=== PATIENT | male | born 1975 | race Caucasian/White ===

== ENCOUNTER 2017-05-31 11:03 | Outpatient (CLI) | payer MEDICAID ==
--- NOTE | 2017-05-31 13:52 | XRAY Report ---
LUMBAR SPINE, TWO VIEWS: 05/31/2017 CLINICAL INDICATION: Back pain. FINDINGS: AP, lateral, coned-down views of the lumbar spine demonstrate mild degenerative disk disea se. There is no evidence of fracture. Minimal levoscoliosis is present, which may be positional in nature. IMPRESSION: MILD DEGENERATIVE DISK DISEASE. JOB #: [id number] EXT JOB #:[id number]
== END 2017-05-31 11:04 | disposition home or self-care (01) ==
LOC: DI 11:03
PROVIDERS: ATTEND Internal Medicine
DX: M51.36 Other intervertebral disc degeneration, lumbar region (principal)
CPT/HCPCS: 72100

== ENCOUNTER 2017-06-04 10:03 | Emergency (ER) | payer MEDICAID ==
--- NOTE | 2017-06-04 11:40 | ED Physician Documentation ---
History of Present Illness - Stated complaint Stated Complaint: MCHUGH,HIGH BP - Chief complaint Chief Complaint: Cardiac - History obtained from History obtained from: Patient - Additonal information Additional information: Patient is a 42-year-old man who presents with a complaint of ongoing frontal headache. He was seen by a new primary care physician last week and started on some alternative medications for pain control and cruising including prazosin Cymbalta, naproxen. At that point in time he noted his blood pressure was slightly elevated and he is asked the patient to watch it. From that time to the present he is developed a headache and has been checking his blood pressure at home and found to be fairly significant elevated to the 110-115 level diastolic. The patient does not have any chest pain or abdominal pain but does have low back pain which radiates down to the right testicle on occasion. This is an ongoing issue. The patient's headache today is a little different from his typical migrainous headache that he gets in the past and about the elevated blood pressure as well. Review of systems: For pertinent positive and negatives in the review of systems please see the history of present illness, otherwise all other systems have been reviewed and are negative. Dragon disclaimer: Parts of this medical record were created using voice recognition technology. Because of the inherent limitations of this system, occasional same sounding word substitutions do occur and persist despite proofreading. Please read the document for context. Review of Systems Constitutional: denies: Fever, Chills Eyes: denies: Loss of vision, Decreased vision GI: denies: Abdominal Pain, Abdominal Swelling Musculoskeletal: reports: Back pain. denies: Neck pain, Extremity pain Neurologic: denies: Generalized weakness, Focal weakness, Numbness, Difficulty speaking, Near syncope, Syncope, Seizure, Confused, Altered mental status PD PAST MEDICAL HISTORY - Past Medical History Cardiovascular: None Respiratory: None Neuro: Headache/migraine Endocrine/Autoimmune: None GI: Other : None HEENT: None Psych: Depression, Anxiety Musculoskeletal: Gout Derm: None - Past Surgical History Past Surgical History: Yes - Present Medications Home Medications: Ambulatory Orders Medication Instructions Recorded Confirmed Ibuprofen 600 mg PO TID #20 tablet 07/08/15 10/12/15 Cyclobenzaprine [Flexeril] 10 mg PO .FREQ 06/04/17 06/04/17 DULoxetine [Cymbalta] 20 mg PO DAILY 06/04/17 06/04/17 Gabapentin 300 mg PO 06/04/17 Metoprolol Succinate 50 mg PO DAILY #14 tab.er.24h 06/04/17 Prazosin [Minipress] 1 mg PO QPM 06/04/17 06/04/17 Tramadol HCl 50 mg PO Q8HR PRN #14 tablet 06/04/17 oxyCODONE [Roxicodone] 5 mg PO ONCE 06/04/17 06/04/17 - Allergies Allergies/Adverse Reactions: Allergies Allergy/AdvReac Type Severity Reaction Status Date / Time buspirone HCl * [From BuSpar] Allergy Unknown Verified 06/04/17 10:14 hydrocodone Allergy Rash Verified 06/04/17 10:14 paroxetine HCl * [From Paxil] Allergy Unknown Verified 06/04/17 10:14 - Social History Does the pt smoke?: Yes Smoking Status: Current every day smoker Does the pt drink ETOH?: Yes Does the pt have substance abuse?: No - Immunizations Immunizations are current?: Yes - POLST Patient has POLST: No PD ED PE NORMAL - Vitals Vital signs reviewed: Yes - General General: Alert and oriented X 3, No acute distress - HEENT HEENT: Atraumatic, PERRL - Neck Neck: Supple, no meningeal sign - Cardiac Cardiac: RRR, No murmur - Respiratory Respiratory: No respiratory distress - Abdomen Abdomen: Normal bowel sounds - Derm Derm: Normal color, Warm and dry - Extremities Extremities: No deformity, No tenderness to palpate - Neuro Neuro: Alert and oriented X 3, 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, No motor deficit - Psych Psych: Normal mood Results - Vitals Vitals: Vital Signs - 24 hr 06/04/17 06/04/17 06/04/17 10:10 12:19 13:02 Temperature 36.5 C Heart Rate 63 58 L 50 L Respiratory 16 16 16 Rate Blood Pressure 160/105 H 177/108 H 173/108 H O2 Saturation 99 99 99 06/04/17 06/04/17 14:07 15:10 Temperature Heart Rate 52 L 51 L Respiratory 15 14 Rate Blood Pressure 173/108 H 152/104 H O2 Saturation 100 99 Oxygen O2 Source Room air - Labs Labs: Laboratory Tests 06/04/17 12:00 Urine Color YELLOW Urine Clarity CLEAR Urine pH 6.5 Ur Specific Broad Top 1.015 Urine Protein NEGATIVE Urine Glucose (UA) NEGATIVE Urine Ketones NEGATIVE Urine Occult Blood MODERATE H Urine Nitrite NEGATIVE Urine Bilirubin NEGATIVE Urine Urobilinogen 0.2 (NORMAL) Ur Leukocyte Esterase NEGATIVE Urine RBC 0-5 Urine WBC 0-3 Ur Squamous Epith Cells NONE SEEN Urine Bacteria None Seen Ur Microscopic Review INDICATED Urine Culture Comments NOT INDICATED PD MEDICAL DECISION MAKING - ED course ED course: Patient is a 42-year-old male with history of chronic low back pain who was diagnosed possibly with mild elevation of his blood pressure during a recent physician's office visit. He was also put on medications as an alternative to narcotics for his chronic low back pain which she has been taking. He presents today with a chief complaint of headache which is a little different from his regular migraine headaches and elevated blood pressure. Thought more likely than not that the headache was not related to the mild elevation in his blood pressures I attempted to control the headache with a small amount of narcotic analgesia and ultimately Imitrex. The patient's blood pressure remained mildly elevated but did finally come down with the administration of clonidine. At this point in time I feel inclined to put him on a blood pressure medication I will put him on a medication that hopefully might control his blood pressure and also partly prophylax him from headaches. I will put him on metoprolol but since he has been started on Minipress I will have him discontinue this medication. The Minipress was put on primarily for reasons other than blood pressure. He is discharged home at this time in improved condition Disposition: 1. Elevated blood pressure is here and historically possibly indicative of mild uncontrolled hypertension 2. Headache resolved with Imitrex Departure - Departure Disposition: 01 Home, Self Care Clinical Impression: Cephalalgia, Hypertension Condition: Good Instructions: Hypertension Control, ED Headache Migraine Follow-Up: Kellen Walker MD [Primary Care Provider] - Prescriptions: Tramadol HCl 50 mg PO Q8HR PRN #14 tablet PRN Reason: Pain Metoprolol Succinate 50 mg PO DAILY #14 tab.er.24h Comments: Your blood pressure is persistently elevated here despite relieving her headache. This is possibly suggestive of mild underlying hypertension. I will start you on a medication called metoprolol that I think will help you however he probably should discontinue the Minipress while being on this medication.
[2017-06-04] MEDS ORDERED: SODIUM CHLORIDE 0.9% 1,000 ML IV ONE (11:41)
[2017-06-04] MEDS ORDERED: diphenhydrAMINE INJ 50 MG/ML VIAL IVP STA (11:42)
[2017-06-04] MEDS ORDERED: diphenhydrAMINE INJ 50 MG/ML VIAL ONE (12:08)
[2017-06-04 12:13] LABS: BILIRUBIN,URINE NEGATIVE (NEGATIVE); PH,URINE 6.5 PH (5.0-7.5)
[2017-06-04 12:14] LABS: UA w/ MICROSCOPIC CHARGE YES
[2017-06-04 12:23] LABS: UR CULTURE IF IND NOT INDICATED; WBC,URINE 0-3 /HPF (0-3)
[2017-06-04] MEDS ORDERED: HYDROmorphone 1 MG/ML SYRINGE IM STA (12:25)
[2017-06-04] MEDS ORDERED: PROMETHAZINE 25 MG/1 ML VIAL IM STA (12:25)
[2017-06-04] MEDS ORDERED: HYDROmorphone 1 MG/ML SYRINGE ONE (12:34)
[2017-06-04] MEDS ORDERED: PROMETHAZINE 25 MG/1 ML VIAL ONE (12:35)
[2017-06-04] MEDS ORDERED: SUMAtriptan 6 MG/0.5 ML VIAL SUBQ ONE ×2 (14:29→14:38)
[2017-06-04] MEDS ORDERED: cloNIDine 0.1 MG TABLET PO STA (14:29)
[2017-06-04] MEDS ORDERED: cloNIDine 0.1 MG TABLET ONE (14:39)
[2017-06-04 15:11] VITALS: BP 152/104
== END 2017-06-04 15:56 | disposition home or self-care (01) ==
LOC: ED 10:03
DX: R51 Headache (principal); I10 Essential (primary) hypertension; M10.9 Gout, unspecified; F17.200 Nicotine dependence, unspecified, uncomplicated
CPT/HCPCS: 81001; 96372; 99283; 99284; A9270; J1170; 80048; 81003; 85025; 87086

== ENCOUNTER 2017-07-07 09:30 | Outpatient (CLI) | payer MEDICAID ==
--- NOTE | 2017-07-07 14:11 | MRI Report ---
EXAM: MRI LUMBAR SPINE WITHOUT CONTRAST EXAM DATE: 07/07/2017 09:32 AM. CLINICAL HISTORY: BACK PAIN. COMPARISON: Radiograph lumbar spine 05/31/2017. TECHNIQUE: Multiplanar, multisequence T1-weighted and fluid-sensitive sequences of the lumbar spine f rom T12 to S1 without contrast. Other: None. FINDINGS: Spinal Cord: The conus terminates at L1-L2. No signal abnormality in the visualized spinal cord. Alignment: straightening of normal lumbar lordosis. No significant anterolisthesis or retrolisthesis . Bone Marrow: Five [id number]-zjm-[id number] lumbar vertebral bodies are assumed. mild diffuse heterogeneity of the bone marrow, may represent fatty replacement of the marrow. No gross fractures or bone lesions. Mild Modic type I degenerative endplate changes at L3-L4 with mild endplate edema. M Disk Levels/Facets: T12-L1: Unremarkable. L1-L2: Unremarkable. L2-L3: mild diffuse disk both superimposed left foraminal protrusion. The left foraminal protrusion may have mild mass effect on the exiting left L2 nerve at this level. Mild anterior dural compression . No significant central canal narrowing. Mild left neuroforaminal narrowing. No right neuroforaminal narrowing. L3-L4: mild disk height loss and desiccation. Mild diffuse disk bulge. Mild anterior dural compressi on. No significant central canal narrowing. Mild left neuroforaminal narrowing. No right neuroforamin al narrowing. L4-L5: mild diffuse disk bulge. Mild bilateral facet arthropathy. No significant central canal narro wing. Xaye-rj-xztdqton bilateral neuroforaminal narrowing. L5-S1: dxfr-zm-hbuxdsij bilateral facet arthropathy. No significant central canal narrowing. Mild thong ateral neuroforaminal narrowing. Musculature: Normal. No edema or fatty atrophy. Other: The visualized pelvic cavity is unremarkable. IMPRESSION: 1. Mild multilevel degenerative spondylosis, as detailed above and summarized below. No evidence of a cute fracture or malalignment. No cord signal normality at any level. 2. Mild Modic type I degenerative endplate changes at L3-L4 with mild endplate edema. Modic type I ch anges may represent a source of pain. 3. L2-L3 level demonstrates no significant central canal narrowing. Mild left neuroforaminal narrowin g. No right neuroforaminal narrowing. 4. L3-L4 level demonstrates no significant central canal narrowing. Mild left neuroforaminal narrowin g. No right neuroforaminal narrowing. 5. L4-L5 level demonstrates no significant central canal narrowing. Sahl-nl-szmmcakp bilateral neurof oraminal narrowing. 6. L5-S1 level demonstrates no significant central canal narrowing. Mild bilateral neuroforaminal vickie rowing. Comment: The following findings are so common in adults without low back pain that while we report th eir presence, they must be interpreted with caution and in the context of the clinical situation. (Re shiva De Anda et al, Spine 2001) Prevalence of findings in patients without low back pain: Disk degeneration (any evidence): 92% Disk desiccation/T2 signal loss: 83% Disk height loss: 56% Disk bulge: 64% Disk protrusion: 32% Annular tear/high intensity zone: 38% [facility] Referring Provider Line: [phone] SITE ID: [id number]
== END 2017-07-07 09:31 | disposition home or self-care (01) ==
LOC: DI 09:30
PROVIDERS: ATTEND Internal Medicine
DX: M51.26 Other intervertebral disc displacement, lumbar region (principal); M47.896 Other spondylosis, lumbar region; M48.06 Spinal stenosis, lumbar region; M89.9 Disorder of bone, unspecified
CPT/HCPCS: 72148

== ENCOUNTER 2018-08-08 10:37 | Outpatient (CLI) | payer MEDICAID ==
--- NOTE | 2018-08-08 16:18 | XRAY Report ---
Reason: COUGH Procedure Date: 08/08/2018 Accession Number: [id number] / [id number] Procedure: XR - Chest 2 View X-Ray CPT Code: 08082 FULL RESULT: EXAM: CHEST RADIOGRAPHY EXAM DATE: 08/08/2018 10:46 AM. CLINICAL HISTORY: Cough. COMPARISON: XR RIBS UNILAT W/ PA CHEST MIN 3 VIEWS 02/28/2012 12:28 PM. TECHNIQUE: 2 views. FINDINGS: Lungs/Pleura: No focal opacities evident. No pleural effusion. No pneumothorax. Lung volumes are increased with flattening of the diaphragms. Mediastinum: Heart and mediastinal contours are unremarkable. Other: None. IMPRESSION: Flattened diaphragms with increased lung volumes can be seen in the setting of emphysema. [facility]
== END 2018-08-08 10:38 | disposition home or self-care (01) ==
LOC: DI 10:37
PROVIDERS: ATTEND Internal Medicine
DX: R05 Cough (principal)
CPT/HCPCS: 71046

== ENCOUNTER 2018-10-13 12:40 | Outpatient (CLI) | payer MEDICAID ==
[2018-10-13] MEDS ORDERED: IOVERSOL 320 100 ML VIAL IVP ONE (12:48)
== END 2018-10-13 12:41 | disposition home or self-care (01) ==
LOC: DI 12:40
PROVIDERS: ATTEND Surgery
DX: Z53.9 Procedure and treatment not carried out, unspecified reason (principal)

== ENCOUNTER 2019-07-16 21:47 | Emergency (ER) | payer MEDICAID ==
--- NOTE | 2019-07-16 22:42 | ED Physician Documentation ---
PD HPI WOUND RECHECK - Stated complaint Stated Complaint: OPEN ABSCESS - Chief complaint Chief Complaint: Wound - Histroy obtained from History obtained from: Patient - History of Present Illness Location: Back Timing - onset: How many days ago (2-3) Associated symptoms: Swelling, Drainage, Pain Similar symptoms before: Diagnosis (pilonidal cyst) Recently seen: Emergency Dept - Additional information Additional information: 2-3 days of worsening pain and swelling at gluteal cleft for which he was evaluated at ED yesterday, had I+D of pilonidal cyst with packing placed. He was seen by PMD earlier today for f/u. After returning home from the reevaluation, he noted packing fell out. He is chiefly concerned with whether packing needs to be replaced. Review of Systems Constitutional: denies: Fever, Chills, Sweats Skin: reports: Lesions PD PAST MEDICAL HISTORY - Past Medical History Past Medical History: Yes Cardiovascular: Hypertension Respiratory: None Endocrine/Autoimmune: None GI: None : None HEENT: None Psych: Depression, Anxiety, ADD/ADHD Musculoskeletal: Gout Derm: None - Past Surgical History Past Surgical History: Yes - Present Medications Home Medications: Ambulatory Orders Medication Instructions Recorded Confirmed Ibuprofen 600 mg PO TID #20 tablet 07/08/15 10/12/15 Cyclobenzaprine [Flexeril] 10 mg PO .FREQ 06/04/17 06/04/17 DULoxetine [Cymbalta] 20 mg PO DAILY 06/04/17 06/04/17 Gabapentin 300 mg PO 06/04/17 Metoprolol Succinate 50 mg PO DAILY #14 tab.er.24h 06/04/17 Prazosin [Minipress] 1 mg PO QPM 06/04/17 06/04/17 Tramadol HCl 50 mg PO Q8HR PRN #14 tablet 06/04/17 oxyCODONE [Roxicodone] 5 mg PO ONCE 06/04/17 06/04/17 - Allergies Allergies/Adverse Reactions: Allergies Allergy/AdvReac Type Severity Reaction Status Date / Time buspirone HCl * [From BuSpar] Allergy Unknown Verified 06/04/17 10:14 hydrocodone Allergy Rash Verified 06/04/17 10:14 paroxetine HCl * [From Paxil] Allergy Unknown Verified 06/04/17 10:14 - Social History Does the pt smoke?: Yes Smoking Status: Current every day smoker Does the pt drink ETOH?: No Does the pt have substance abuse?: No Substance Use and Type: Marijuana - Immunizations Immunizations are current?: Yes - POLST Patient has POLST: No PD ED PE NORMAL - Vitals Vital signs reviewed: Yes - General General: Alert and oriented X 3, No acute distress, Well developed/nourished PD ED PE EXPANDED - Back Back visual: 1 - tenderness (confluent erythema, moderate tenderness without fluctuance. there is a central opening from which small amount of purulence expresses with pressure to edges of the lesion) Results - Vitals Vitals: Oxygen O2 Source Room air PD MEDICAL DECISION MAKING - ED course Complexity details: considered differential, d/w patient ED course: lack of fluctuance and lack of palpable abscess margins on exam suggest against presence of loculations. The opening (incision site) has mild drainage and appears to be providing adequate opening for drainage without need for repacking at this time. Departure - Departure Disposition: 01 Home, Self Care Clinical Impression: Infected pilonidal cyst Condition: Good Instructions: ED Wound Care Follow-Up: Kellen Walker MD [Primary Care Provider] - Discharge Date/Time: 07/16/19 23:17
[2019-07-16] MEDS ORDERED: BACITRACIN ZINC OINT 14 GM TOP STA (23:00)
[2019-07-16 23:17] VITALS: BP 185/128
== END 2019-07-16 23:17 | disposition home or self-care (01) ==
LOC: ED 21:47
DX: L05.01 Pilonidal cyst with abscess (principal); I10 Essential (primary) hypertension; F17.200 Nicotine dependence, unspecified, uncomplicated
CPT/HCPCS: 99282; A9270

== ENCOUNTER 2019-11-06 22:37 | Emergency (ER) | payer MEDICAID ==
[2019-11-06 22:42] VITALS: BP 150/100
[2019-11-06] MEDS ORDERED: oxyCODONE/ACET 5/325 Prepack 4 PO STA (22:50)
[2019-11-06] MEDS ORDERED: CLINDAMYCIN 150 MG CAPSULE PO STA (22:53)
--- NOTE | 2019-11-06 22:58 | ED Physician Documentation ---
PD HPI HEENT - Stated complaint Stated Complaint: SWOLLEN LIP - Chief complaint Chief Complaint: Heent - History obtained from History obtained from: Patient (He noticed what he felt was a pimple on his lip, he popped it and now has more swelling and pain. He does have a history of MRSA.) Review of Systems Constitutional: denies: Fever, Chills Ears: denies: Loss of hearing, Ear pain Nose: denies: Rhinorrhea / runny nose, Congestion PD PAST MEDICAL HISTORY - Past Medical History Cardiovascular: Hypertension Respiratory: None Endocrine/Autoimmune: None GI: None : None HEENT: None Psych: Depression, Anxiety, ADD/ADHD Musculoskeletal: Gout Derm: None - Past Surgical History Past Surgical History: Yes - Present Medications Home Medications: Ambulatory Orders Medication Instructions Recorded Confirmed Ibuprofen 600 mg PO TID #20 tablet 07/08/15 10/12/15 Cyclobenzaprine [Flexeril] 10 mg PO .FREQ 06/04/17 06/04/17 DULoxetine [Cymbalta] 20 mg PO DAILY 06/04/17 06/04/17 Gabapentin 300 mg PO 06/04/17 Metoprolol Succinate 50 mg PO DAILY #14 tab.er.24h 06/04/17 Prazosin [Minipress] 1 mg PO QPM 06/04/17 06/04/17 Tramadol HCl 50 mg PO Q8HR PRN #14 tablet 06/04/17 oxyCODONE [Roxicodone] 5 mg PO ONCE 06/04/17 06/04/17 Clindamycin HCl [Clindamycin 300MG 300 mg PO Q6H #40 capsule 11/06/19 CAP] Oxycodone HCl/Acetaminophen 1 - 2 each PO Q6H PRN #14 tablet 11/06/19 [Percocet 5-325 mg Tablet] - Allergies Allergies/Adverse Reactions: Allergies Allergy/AdvReac Type Severity Reaction Status Date / Time buspirone HCl * [From BuSpar] Allergy Unknown Verified 11/06/19 22:39 hydrocodone Allergy Rash Verified 11/06/19 22:39 paroxetine HCl * [From Paxil] Allergy Unknown Verified 11/06/19 22:39 - Social History Does the pt smoke?: Yes Smoking Status: Current every day smoker Does the pt drink ETOH?: No Does the pt have substance abuse?: No - Immunizations Immunizations are current?: Yes - POLST Patient has POLST: No PD ED PE NORMAL - Vitals Vital signs reviewed: Yes - General General: Alert and oriented X 3, No acute distress - HEENT HEENT: Other (There is a indurated area on the lower lip, there is a little area where it looks like the pus came out of right at the vermilion border. There is no fluctuance left nor is there any fluid collection on bedside ultrasound. A culture was taken from the little opening of the vermilion border but there was not really much material to culture, it looks like he completely drained at home.) - Neck Neck: Supple, no meningeal sign, No bony TTP - Neuro Neuro: Alert and oriented X 3, Normal speech Results - Vitals Vitals: Vital Signs - 24 hr 11/06/19 22:40 Temperature 36.7 C Heart Rate 57 L Respiratory 14 Rate Blood Pressure 150/100 H O2 Saturation 98 Oxygen O2 Source Room air PD MEDICAL DECISION MAKING - ED course ED course: 44-year-old gentleman with what looks like a completely drained lip abscess. He is started on clindamycin. We obtained a culture. Departure - Departure Disposition: Home, Self Care Clinical Impression: Lip abscess Condition: Good Record reviewed to determine appropriate education?: Yes Instructions: ED Staph Infec Abx Tx Only Prescriptions: Clindamycin HCl [Clindamycin 300MG CAP] 300 mg PO Q6H #40 capsule Oxycodone HCl/Acetaminophen [Percocet 5-325 mg Tablet] 1 - 2 each PO Q6H PRN #14 tablet PRN Reason: pain Comments: We are performing a wound culture, the results should be done in 48-72 hours. If antibiotic change is necessary we will call you. Return if worse in the meantime, especially if you develop increased pain, fevers, cannot keep down the medication. Otherwise follow-up with your physician in approximately 2-3 days. Your blood pressure was elevated today on check into the emergency department. This does not mean that you have hypertension, it is a common phenomenon to come to the emergency department and have elevated blood pressure. I recommend that you see your primary care physician within the week to have it rechecked when you are feeling better.
== END 2019-11-06 23:00 | disposition home or self-care (01) ==
LOC: ED 22:37
DX: K13.0 Diseases of lips (principal); I10 Essential (primary) hypertension; F17.200 Nicotine dependence, unspecified, uncomplicated
CPT/HCPCS: 87070; 87077; 87181; 87205; 99283; A9270

== ENCOUNTER 2019-11-22 15:26 | Emergency (ER) | payer MEDICAID ==
[2019-11-22 15:33] VITALS: BP 126/91
[2019-11-22] MEDS ORDERED: predniSONE 20 MG TABLET PO STA (15:56)
[2019-11-22] MEDS ORDERED: COLCHICINE 0.6 MG TABLET PO STA (15:56)
[2019-11-22] MEDS ORDERED: IBUPROFEN 800 MG TABLET PO STA (15:56)
--- NOTE | 2019-11-22 15:57 | ED Physician Documentation ---
History of Present Illness - Stated complaint Stated Complaint: LT FOOT PX - Chief complaint Chief Complaint: Ext Problem - History obtained from History obtained from: Patient - History of Present Illness Timing: Today Pain level max: 4 Pain level now: 3 - Additonal information Additional information: 44-year-old male with a longstanding history of gout. He states that he started developing pain, redness and swelling in his left first MTP. He states that this is a common spot for him. Worse with movement and better with rest. No fevers. No vomiting. Review of Systems Constitutional: denies: Fever, Chills GI: denies: Vomiting, Diarrhea Skin: denies: Rash PD PAST MEDICAL HISTORY - Past Medical History Past Medical History: Yes Cardiovascular: Hypertension Respiratory: None Endocrine/Autoimmune: None GI: None : None HEENT: None Psych: Depression, Anxiety, ADD/ADHD Musculoskeletal: Gout Derm: None - Past Surgical History Past Surgical History: Yes - Present Medications Home Medications: Ambulatory Orders Medication Instructions Recorded Confirmed Ibuprofen 600 mg PO TID #20 tablet 07/08/15 10/12/15 Cyclobenzaprine [Flexeril] 10 mg PO .FREQ 06/04/17 06/04/17 DULoxetine [Cymbalta] 20 mg PO DAILY 06/04/17 06/04/17 Gabapentin 300 mg PO 06/04/17 Metoprolol Succinate 50 mg PO DAILY #14 tab.er.24h 06/04/17 Prazosin [Minipress] 1 mg PO QPM 06/04/17 06/04/17 Tramadol HCl 50 mg PO Q8HR PRN #14 tablet 06/04/17 oxyCODONE [Roxicodone] 5 mg PO ONCE 06/04/17 06/04/17 Clindamycin HCl [Clindamycin 300MG 300 mg PO Q6H #40 capsule 11/06/19 CAP] Oxycodone HCl/Acetaminophen 1 - 2 each PO Q6H PRN #14 tablet 11/06/19 [Percocet 5-325 mg Tablet] Ibuprofen [Motrin] 800 mg PO Q8H PRN #30 tablet 11/22/19 predniSONE [Prednisone] 40 mg PO DAILY #10 tablet 11/22/19 - Allergies Allergies/Adverse Reactions: Allergies Allergy/AdvReac Type Severity Reaction Status Date / Time buspirone HCl * [From BuSpar] Allergy Unknown Verified 11/22/19 15:31 codeine Allergy Rash Verified 11/22/19 15:32 paroxetine HCl * [From Paxil] Allergy Unknown Verified 11/22/19 15:31 - Social History Does the pt smoke?: Yes Smoking Status: Current every day smoker Does the pt drink ETOH?: No Does the pt have substance abuse?: No - Immunizations Immunizations are current?: Yes - POLST Patient has POLST: No PD ED PE NORMAL - Vitals Vital signs reviewed: Yes - General General: Alert and oriented X 3, No acute distress - HEENT HEENT: Moist mucous membranes - Neck Neck: Supple, no meningeal sign - Cardiac Cardiac: RRR - Respiratory Respiratory: No respiratory distress, Clear bilaterally - Derm Derm: Warm and dry - Extremities Extremities: Other (L 1st MTP with mild swelling and erythema. NVI.) - Neuro Neuro: Alert and oriented X 3 Results - Vitals Vitals: Vital Signs - 24 hr 11/22/19 15:32 Temperature 36.5 C Heart Rate 76 Respiratory 15 Rate Blood Pressure 126/91 H O2 Saturation 99 Oxygen O2 Source Room air PD MEDICAL DECISION MAKING - ED course Complexity details: considered differential, d/w patient ED course: Patient with gout of his left first MTP. This is an ongoing issue for him. Given colchicine and prednisone here. He also states that he had a vasectomy 2 days ago and asked if I would look at the incision. The incision appears clean dry and intact without signs of infection. Appears to have normal healing. Patient will continue Motrin and steroids as needed at home for the gout. Patient counseled regarding signs and symptoms for which I believe and urgent re-evaluation would be necessary. Patient with good understanding of and agreement to plan and is comfortable going home at this time This document was made in part using voice recognition software. While efforts are made to proofread this document, sound alike and grammatical errors may occur. Departure - Departure Disposition: Home, Self Care Clinical Impression: Gout attack Qualifiers: Gout site: toe Gout etiology: unspecified cause Laterality: left Qualified Code(s): M10.9 - Gout, unspecified Condition: Good Instructions: ED Arthritis Gout, ED Diet Gout Follow-Up: Kellen Walker MD [Primary Care Provider] - As Needed Prescriptions: Ibuprofen [Motrin] 800 mg PO Q8H PRN #30 tablet PRN Reason: PAIN &/OR FEVER predniSONE [Prednisone] 40 mg PO DAILY #10 tablet Comments: Drink plenty of water at home. Return if you worsen. Follow-up with your doctor for further care.
== END 2019-11-22 16:09 | disposition home or self-care (01) ==
LOC: ED 15:26
DX: M10.9 Gout, unspecified (principal); I10 Essential (primary) hypertension; F17.200 Nicotine dependence, unspecified, uncomplicated
CPT/HCPCS: 99282; 99284; A9270; J7512

== ENCOUNTER 2020-10-28 15:05 | Outpatient (CLI) | payer MEDICAID | END 2020-10-28 15:06 | disposition EMS.NT | LOC: EMS 15:05 | PROVIDERS: ATTEND Surgery | DX: R55 Syncope and collapse (principal) ==

== ENCOUNTER 2020-10-29 17:09 | Emergency (ER) | payer MEDICAID ==
[2020-10-29 17:15] VITALS: BP 142/82
[2020-10-29] MEDS ORDERED: oxyCODONE 5 MG TABLET PO STA (17:45)
--- NOTE | 2020-10-29 17:47 | XRAY Report ---
PROCEDURE: Foot 3 View LT INDICATIONS: Trauma TECHNIQUE: 3 nonweightbearing views of the foot were acquired. COMPARISON: Left ankle radiographs 03/19/2013 FINDINGS: Bones: No acute fractures or dislocations. No suspicious bony lesions. Soft tissues: Mild soft tissue edema is seen at the dorsum of the foot. IMPRESSION: No acute osseous abnormality. If there is clinical concern or persistent symptoms, further evaluation with repeat radiographs or advanced imaging (e.g. CT, MRI) may be obtained for further evaluation. Reviewed by: Rambo Louis MD on 10/29/2020 5:46 PM PST Approved by: Rambo Louis MD on 10/29/2020 5:46 PM PST Station ID: [id number]
--- NOTE | 2020-10-29 17:53 | ED Physician Documentation ---
PD HPI LOWER EXT INJURY - Stated complaint Stated Complaint: TOE INJ - Chief complaint Chief Complaint: Trauma Ext - History obtained from History obtained from: Patient - History of Present Illness PD HPI LOW EXT INJURY LOCATION: Left, Foot Type of injury: Crush (winch) Where injury occurred: Home Timing - details: Abrupt onset Pain level max: 10 Pain level now: 10 Improved by: Rest, Ice, Immobilization Worsened by: Moving, Palpating Associated symptoms: No: Weakness, Numbness, Tingling, Swelling Contributing factors: No: Anticoagulated Recently seen: Not recently seen Review of Systems Neurologic: denies: Head injury PD PAST MEDICAL HISTORY - Past Medical History Cardiovascular: Hypertension Respiratory: None Endocrine/Autoimmune: None GI: None : None HEENT: None Psych: Depression, Anxiety, ADD/ADHD Musculoskeletal: Gout Derm: None - Past Surgical History Past Surgical History: Yes - Present Medications Home Medications: Ambulatory Orders Medication Instructions Recorded Confirmed No Known Home Medications 10/29/20 10/29/20 - Allergies Allergies/Adverse Reactions: Allergies Allergy/AdvReac Type Severity Reaction Status Date / Time buspirone HCl * [From BuSpar] Allergy Unknown Verified 10/29/20 17:11 codeine Allergy Rash Verified 10/29/20 17:11 paroxetine HCl * [From Paxil] Allergy Unknown Verified 10/29/20 17:11 - Social History Does the pt smoke?: Yes Smoking Status: Current every day smoker Does the pt drink ETOH?: No Does the pt have substance abuse?: No - Immunizations Immunizations are current?: Yes - POLST Patient has POLST: No PD ED PE NORMAL - Vitals Vital signs reviewed: Yes - General General: Alert and oriented X 3, No acute distress - HEENT HEENT: Moist mucous membranes - Neck Neck: Supple, no meningeal sign - Derm Derm: Warm and dry - Neuro Neuro: Alert and oriented X 3 - Psych Psych: Normal mood, Normal affect Results - Vitals Vitals: Vital Signs - 24 hr 10/29/20 17:12 Temperature 36.9 C Heart Rate 89 Respiratory 18 Rate Blood Pressure 142/82 H O2 Saturation 100 Oxygen O2 Source Room air - Rads (name of study) L foot xray Radiology: Prelim report reviewed, EMP read contemporaneously, See rad report (no acute abnormality) PD MEDICAL DECISION MAKING - ED course Complexity details: reviewed results, re-evaluated patient, considered differential, d/w patient ED course: 45-year-old male with a crush injury to the left foot. No acute findings on x- ray. Has pain medication at home. Placed in a postoperative shoe for comfort. Patient counseled regarding signs and symptoms for which I believe and urgent re-evaluation would be necessary. Patient with good understanding of and agreement to plan and is comfortable going home at this time This document was made in part using voice recognition software. While efforts are made to proofread this document, sound alike and grammatical errors may occur. Departure - Departure Disposition: 01 Home, Self Care Clinical Impression: Foot contusion Qualifiers: Encounter type: initial encounter Laterality: left Qualified Code(s): S90.32XA - Contusion of left foot, initial encounter Condition: Good Instructions: ED Contusion Foot Follow-Up: Kellen Walker MD [Primary Care Provider] - Within 1 week Comments: Your x-ray does not show any fractures today. You can wear the postoperative shoe as needed for comfort. Follow-up with your doctor as needed for further care. Discharge Date/Time: 10/29/20 18:01
== END 2020-10-29 18:01 | disposition home or self-care (01) ==
LOC: ED 17:09
DX: S90.32XA Contusion of left foot, initial encounter (principal); S97.82XA Crushing injury of left foot, initial encounter; W20.8XXA Other cause of strike by thrown, projected or falling object, initial encounter; Y92.009 Unspecified place in unspecified non-institutional (private) residence as the place of occurrence of the external cause; I10 Essential (primary) hypertension; F17.200 Nicotine dependence, unspecified, uncomplicated
CPT/HCPCS: 73630; 99283; A9270

== ENCOUNTER 2021-01-18 16:26 | Emergency (ER) | payer MEDICAID | END 2021-01-18 17:20 | disposition left against medical advice (07) | LOC: ED 16:26 | DX: Z53.21 Procedure and treatment not carried out due to patient leaving prior to being seen by health care provider (principal) ==

== ENCOUNTER 2021-01-21 23:24 | Emergency (ER) | payer MEDICAID ==
[2021-01-22] MEDS ORDERED: SULFAMETH/TRIMETH DS 800/160 MG TABLET PO STA (00:59)
[2021-01-22] MEDS ORDERED: LIDOCAINE-EPINEPH-TETRACAINE 3 ML SYRINGE TOP STA (00:59)
[2021-01-22] MEDS ORDERED: oxyCODONE 5 MG TABLET PO STA (00:59)
[2021-01-22] MEDS ORDERED: IBUPROFEN 600 MG TABLET PO STA (00:59)
--- NOTE | 2021-01-22 01:50 | ED Physician Documentation ---
PD HPI SKIN - Stated complaint Stated Complaint: L LEG ABCESS - Chief complaint Chief Complaint: Wound - History obtained from History obtained from: Patient - History of Present Illness Timing - onset: How many weeks ago (1) Timing - duration: Weeks (1) Timing - details: Gradual onset, Still present Quality / character: Painful, Discolored (red), Raised. No: Draining Associated symptoms: No: Fever, Myalgias, N/V/D Contributing factors: No: Insect bite /sting, Recent illness Similar symptoms before: Has not had sx before Recently seen: Not recently seen Review of Systems Constitutional: denies: Fever, Chills GI: denies: Nausea, Vomiting, Diarrhea Musculoskeletal: denies: Neck pain, Back pain PD PAST MEDICAL HISTORY - Past Medical History Past Medical History: Yes Cardiovascular: Hypertension Respiratory: None Endocrine/Autoimmune: None GI: None : None HEENT: None Psych: Depression, Anxiety, ADD/ADHD Musculoskeletal: Gout Derm: Other Other Past Medical History: hx of abcesses/MRSA - Past Surgical History Past Surgical History: Yes - Present Medications Home Medications: Ambulatory Orders Medication Instructions Recorded Confirmed ALPRAZolam [Alprazolam] 0.5 mg PO TID PRN 01/21/21 01/21/21 Lisinopril [Prinivil] 10 mg PO BID 01/21/21 01/21/21 Metoprolol Succinate [Toprol Xl] 50 mg PO BID 01/21/21 01/21/21 oxyCODONE [Roxicodone] 5 mg PO QID 01/21/21 01/21/21 Mupirocin Calcium [Mupirocin] 1 applic TP TID #15 gm 01/22/21 Sulfamethox/Trimeth 800/160 1 each PO BID #14 tablet 01/22/21 [Bactrim Ds 800/160] - Allergies Allergies/Adverse Reactions: Allergies Allergy/AdvReac Type Severity Reaction Status Date / Time buspirone HCl * [From BuSpar] Allergy Unknown Verified 01/21/21 23:44 codeine Allergy Rash Verified 01/21/21 23:44 paroxetine HCl * [From Paxil] Allergy Unknown Verified 01/21/21 23:44 - Social History Does the pt smoke?: Yes Smoking Status: Current every day smoker Does the pt drink ETOH?: No Does the pt have substance abuse?: No - Immunizations Immunizations are current?: Yes - POLST Patient has POLST: No PD ED PE NORMAL - Vitals Vital signs reviewed: Yes - General General: Alert and oriented X 3, No acute distress (but does have notable tenderness at the abscess area), Well developed/nourished - Derm Derm: Normal color, Warm and dry, Other (Posterior calf mid lower leg shows a localized 2 to 3 cm area of tenderness raised above the surface with redness and some induration as well. No current drainage. It is locally very tender.) - Neuro Neuro: Alert and oriented X 3, No motor deficit, Normal speech Results - Vitals Vitals: Vital Signs - 24 hr 01/21/21 01/21/21 01/22/21 23:42 23:53 01:56 Temperature 36.5 C 36.5 C 36.5 C Heart Rate 83 83 79 Respiratory 16 16 16 Rate Blood Pressure 140/91 H 140/91 H 135/88 H O2 Saturation 99 99 100 Oxygen O2 Source Room air Procedures - Abscess I&D (location) left calf area Preparation: Confirmed with ultrasound, Lidocaine 2 %, With epi, LET Incision: Incised with scalpel, Purulent drainage, Irrigated. No: Packed, Culture obtained Other: Pt tolerated well, Dressing applied PD MEDICAL DECISION MAKING - ED course Complexity details: considered differential, d/w patient Departure - Departure Disposition: 01 Home, Self Care Clinical Impression: Abscess of lower leg Condition: Stable Record reviewed to determine appropriate education?: Yes Instructions: ED Abscess IandD Follow-Up: Kellen Walker MD [Primary Care Provider] - Prescriptions: Sulfamethox/Trimeth 800/160 [Bactrim Ds 800/160] 1 each PO BID #14 tablet Mupirocin Calcium [Mupirocin] 1 applic TP TID #15 gm Comments: Warm moist towels or soaks for the area to promote further drainage from the incision area. Continue usual medications at home. Add ibuprofen or naproxen anti- inflammatories 2-3 times daily. Bactrim antibiotic twice daily for 5 or 6 days until this appears well-healed. I would anticipate less drainage redness and swelling over the next 2 to 3 days and decreasing pain along with that. Recheck if not improved well over the next 2 to 3 days and resolved over 5 or 6 days. Discharge Date/Time: 01/22/21 01:56
[2021-01-22 01:57] VITALS: BP 135/88
== END 2021-01-22 01:56 | disposition home or self-care (01) ==
LOC: ED 23:24
DX: L02.416 Cutaneous abscess of left lower limb (principal); I10 Essential (primary) hypertension; F17.200 Nicotine dependence, unspecified, uncomplicated
CPT/HCPCS: 10060; 99282; 99283; A9270

== ENCOUNTER 2021-06-08 10:09 | Emergency (ER) | payer MEDICAID ==
--- NOTE | 2021-06-08 11:48 | ED Physician Documentation ---
PD HPI UPPER EXT INJURY - Stated complaint Stated Complaint: LT ARM SWELLING - Chief complaint Chief Complaint: Ext Problem - History obtained from History obtained from: Patient - Additonal information Additional information: Emergency department chief complaint of left arm swelling and redness after shooting up what he thought was heroin tar last night. Patient states he began to notice couple hours later that his arm was painful and he had a burning sensation there. Patient denies any fevers or chills. He states he is going through a hard time right now and that is what drove him to shoot up, but he is not a regular user. No other complaints at this time. Review of Systems Ten Systems: 10 systems reviewed and negative Constitutional: reports: Reviewed and negative Eyes: reports: Reviewed and negative Ears: reports: Reviewed and negative Nose: reports: Reviewed and negative Throat: reports: Reviewed and negative Cardiac: reports: Reviewed and negative Respiratory: reports: Reviewed and negative GI: reports: Reviewed and negative : reports: Reviewed and negative Skin: reports: Other (Redness, swelling, left upper extremity.) Musculoskeletal: reports: Reviewed and negative Neurologic: reports: Reviewed and negative Psychiatric: reports: Reviewed and negative Endocrine: reports: Reviewed and negative Immunocompromised: reports: Reviewed and negative PD PAST MEDICAL HISTORY - Past Medical History Past Medical History: Yes Cardiovascular: Hypertension Respiratory: None Endocrine/Autoimmune: None GI: None : None HEENT: None Psych: Depression, Anxiety, ADD/ADHD Musculoskeletal: Gout Derm: Other - Past Surgical History Past Surgical History: Yes - Present Medications Home Medications: Ambulatory Orders Medication Instructions Recorded Confirmed ALPRAZolam [Alprazolam] 0.5 mg PO TID PRN 01/21/21 06/08/21 Metoprolol Succinate [Toprol Xl] 50 mg PO BID 01/21/21 06/08/21 lisinopriL [Prinivil] 10 mg PO BID 01/21/21 06/08/21 oxyCODONE [Roxicodone] 5 mg PO QID 01/21/21 06/08/21 Doxycycline Monohydrate [Avidoxy] 100 mg PO BID #14 tablet 06/08/21 cephALEXin [Keflex] 500 mg PO Q6H #28 06/08/21 - Allergies Allergies/Adverse Reactions: Allergies Allergy/AdvReac Type Severity Reaction Status Date / Time acetaminophen [From Vicodin] Allergy Itching Verified 06/08/21 10:20 buspirone HCl * [From BuSpar] Allergy Unknown Verified 06/08/21 10:20 codeine Allergy Rash Verified 06/08/21 10:20 hydrocodone [From Vicodin] Allergy Itching Verified 06/08/21 10:20 paroxetine HCl * [From Paxil] Allergy Unknown Verified 06/08/21 10:20 - Social History Does the pt smoke?: Yes Smoking Status: Current every day smoker Does the pt drink ETOH?: Yes Does the pt have substance abuse?: Yes Substance Use and Type: Marijuana, Heroin - Immunizations Immunizations are current?: No Immunizations: TDAP >10years/unknown - POLST Patient has POLST: No PD ED PE NORMAL - Vitals Vital signs reviewed: Yes - General General: Alert and oriented X 3, No acute distress, Well developed/nourished - HEENT HEENT: Atraumatic, PERRL, EOMI, Moist mucous membranes - Neck Neck: Supple, no meningeal sign - Cardiac Cardiac: Strong equal pulses - Respiratory Respiratory: No respiratory distress - Derm Derm: Warm and dry, Other (Erythema, edema, induration in left AC with erythema spreading about 5 cm distally and proximally. No fluctuance. No drainage.) - Extremities Extremities: No deformity, Other (Swelling and erythema left upper extremity, with mild induration around AC area.) - Neuro Neuro: Alert and oriented X 3 - Psych Psych: Normal mood, Normal affect Results - Vitals Vitals: Vital Signs - 24 hr 06/08/21 06/08/21 10:14 10:42 Temperature 37.8 C 37.2 C Heart Rate 94 89 Respiratory 18 16 Rate Blood Pressure 149/100 H 141/87 H O2 Saturation 97 96 Oxygen O2 Source Room air - Rads (name of study) Ultrasound left upper extremity Radiology: Final report received, EMP read indepedently, See rad report (Negative) PD MEDICAL DECISION MAKING - ED course Complexity details: reviewed results, re-evaluated patient, considered differential, d/w patient ED course: It was worked up with ultrasound to assess whether he had an abscess or clot and ultrasound is negative for both of these. He was started on doxycycline and Keflex in the emergency department. I have stressed the importance of the patient taking his antibiotics every day as directed to be sure this infection does not worsen. We have discussed the usual indications for return. Departure - Departure Disposition: Home, Self Care Clinical Impression: Cellulitis Qualifiers: Site of cellulitis: extremity Site of cellulitis of extremity: upper extremity Laterality: left Qualified Code(s): L03.114 - Cellulitis of left upper limb Condition: Stable Instructions: ED Infec Skin Cellulitis Prescriptions: Doxycycline Monohydrate [Avidoxy] 100 mg PO BID #14 tablet cephALEXin [Keflex] 500 mg PO Q6H #28 Comments: Your ultrasound does not show an abscess or clot today. You appear to have a skin infection that is most likely from shooting up. Please take the antibiotics every day, as directed, until gone. Please do not miss any doses. You should return to the emergency department if you find your infection is worsening despite a couple of days of antibiotics.
--- NOTE | 2021-06-08 11:49 | Ultrasound Report ---
PROCEDURE: Duplex Ext Veins Left INDICATIONS: pain/swelling TECHNIQUE: Real-time imaging, as well as color and pulse Doppler interrogation, were performed of the lower extr emity deep veins from the inguinal ligament to the popliteal fossa. COMPARISON: None. FINDINGS: The deep veins are normally compressible, and free of intraluminal thrombus. Color and pu lse Doppler demonstrate normal phasic intraluminal flow. There is normal augmentation response to di stal compression maneuver. A left axillary lymph node measures 1.7 x 0.7 x 0.8 cm IMPRESSION: No DVT in the left upper extremity. Reviewed by: Jean Brandt on 06/08/2021 11:48 AM PDT Approved by: Jean Brandt on 06/08/2021 11:48 AM PDT Station ID: [id number]
[2021-06-08] MEDS: DOXYCYCLINE 100 MG TABLET PO STA (11:59)
[2021-06-08] MEDS: cephALEXin 250 MG CAPSULE PO STA (12:00)
[2021-06-08 12:01] VITALS: BP 133/94
== END 2021-06-08 12:07 | disposition home or self-care (01) ==
LOC: ED 10:09
DX: L03.114 Cellulitis of left upper limb (principal); F17.200 Nicotine dependence, unspecified, uncomplicated
CPT/HCPCS: 93971; 99284; A9270

== ENCOUNTER 2021-08-09 21:09 | Emergency (ER) | payer MEDICAID ==
[2021-08-09] MEDS ORDERED: SULFAMETH/TRIMETH DS 800/160 MG TABLET PO STA (21:29)
--- NOTE | 2021-08-09 21:32 | ED Physician Documentation ---
History of Present Illness - Stated complaint Stated Complaint: RT UPPER ARM PX/ABSCESS - Chief complaint Chief Complaint: Wound - Additonal information Additional information: 46-year-old male comes to the emergency department for wound care of his right upper arm abscess. 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 He was seen at [facility] last night and the wound was incised and drained. However he was upset and frustrated with the care rendered there and he left without receiving discharge instructions or an antibiotic prescription. He is here tonight requesting antibiotics. Review of Systems Constitutional: denies: Fever, Chills Ears: reports: Reviewed and negative Throat: reports: Reviewed and negative Cardiac: reports: Reviewed and negative Respiratory: reports: Reviewed and negative GI: reports: Reviewed and negative : reports: Reviewed and negative Skin: reports: Lesions Musculoskeletal: reports: Reviewed and negative PD PAST MEDICAL HISTORY - Past Medical History Cardiovascular: Hypertension Respiratory: None Endocrine/Autoimmune: None GI: None : None HEENT: None Psych: Depression, Anxiety, ADD/ADHD Musculoskeletal: Gout Derm: Other - Past Surgical History Past Surgical History: Yes - Present Medications Home Medications: Ambulatory Orders Medication Instructions Recorded Confirmed ALPRAZolam [Alprazolam] 0.5 mg PO TID PRN 01/21/21 08/09/21 Metoprolol Succinate [Toprol Xl] 50 mg PO BID 01/21/21 08/09/21 lisinopriL [Prinivil] 10 mg PO BID 01/21/21 08/09/21 oxyCODONE [Roxicodone] 5 mg PO QID 01/21/21 08/09/21 Doxycycline Monohydrate [Avidoxy] 100 mg PO BID #14 tablet 06/08/21 08/09/21 cephALEXin [Keflex] 500 mg PO Q6H #28 06/08/21 08/09/21 Sulfamethox/Trimeth 800/160 1 each PO BID #14 tablet 08/09/21 [Bactrim Ds 800/160] - Allergies Allergies/Adverse Reactions: Allergies Allergy/AdvReac Type Severity Reaction Status Date / Time acetaminophen [From Vicodin] Allergy Itching Verified 08/09/21 21:18 buspirone HCl * [From BuSpar] Allergy Unknown Verified 08/09/21 21:18 codeine Allergy Rash Verified 08/09/21 21:18 hydrocodone [From Vicodin] Allergy Itching Verified 08/09/21 21:18 paroxetine HCl * [From Paxil] Allergy Unknown Verified 08/09/21 21:18 - Social History Does the pt smoke?: Yes Smoking Status: Current every day smoker Does the pt drink ETOH?: Yes Does the pt have substance abuse?: Yes - Immunizations Immunizations are current?: No Immunizations: TDAP >10years/unknown - POLST Patient has POLST: No PD ED PE EXPANDED - General General: Alert, In Pain - Cardiac Cardiac: Tachy, Radial strong equal, Cap refill < 2 sec. No: Murmur Present - Respiratory Respiratory: Clear to ausultation thong. No: Distress, Labored - Abdomen Abdomen: Normal Bowel sounds. No: Tender to palpation - Extremities Extremities: Right arm (2 x 3 cm abscess that has been fully opened with wound extending approximately 2 cm deep to the muscle fascia. Mild surrounding erythema on the right upper arm. Moderate amount of purulent drainage on the packing gauze) Results - Vitals Vitals: Vital Signs - 24 hr 08/09/21 21:13 Temperature 36.8 C Heart Rate 111 H Respiratory 16 Rate Blood Pressure 164/102 H O2 Saturation 100 Oxygen O2 Source Room air PD MEDICAL DECISION MAKING - ED course Complexity details: considered differential, d/w patient ED course: 46-year-old male presents the emergency department for evaluation of right upper arm abscess that was incised and drained last night at [facility]. Patient became frustrated with the care there and left without receiving discharge instructions or an antibiotic prescription. Today the dressing is removed and there is moderate amount of purulent drainage as would be expected. However patient admits that the erythema surrounding the abscess is markedly improved. The wound is gaping and large enough that the packing was not replaced. It was irrigated with saline and a simple bandage was placed over it. Patient will be started on Bactrim. We discussed that a wound of the size likely takes 2 to 3 weeks to fully heal. Emergent worrisome return precautions were discussed. Departure - Departure Disposition: 01 Home, Self Care Clinical Impression: Abscess of right arm Condition: Stable Record reviewed to determine appropriate education?: Yes Prescriptions: Sulfamethox/Trimeth 800/160 [Bactrim Ds 800/160] 1 each PO BID #14 tablet Comments: Everette the abscess that was opened yesterday at [facility] looks as though it is healing well. No further packing needs to be placed as the wound is large enough that we would not expect it to close on its own. It is okay to shower normally and allow soap and warm water to rinse through the wound simply place a bandage over the wound after showering. I have electronically transcribed a medication or antibiotic called BactGraitec to the [facility] in [place]. Your first dose was given tonight in the ER and you can fill the prescription tomorrow. It will likely take 3 to 4 weeks for this to fully heal. If despite the antibio tics and routine wound care you are having increased fevers redness swelling or milky drainage then please return to the ER for a second evaluation.
[2021-08-09 21:36] VITALS: BP 162/99
== END 2021-08-09 21:37 | disposition home or self-care (01) ==
LOC: ED 21:09
DX: L02.413 Cutaneous abscess of right upper limb (principal); Z86.14 Personal history of Methicillin resistant Staphylococcus aureus infection; I10 Essential (primary) hypertension; F17.200 Nicotine dependence, unspecified, uncomplicated
CPT/HCPCS: 99282; 99283; A9270

== ENCOUNTER 2022-01-16 14:52 | Emergency (ER) | payer MEDICAID ==
[2022-01-16] MEDS ORDERED: LIDOCAINE 1%-EPI 1:100000 20 ML MDV SUBQ STA (15:05)
[2022-01-16] MEDS ORDERED: CLINDAMYCIN 150 MG CAPSULE PO STA (15:09)
--- NOTE | 2022-01-16 15:27 | ED Physician Documentation ---
PD HPI WOUND RECHECK - Stated complaint Stated Complaint: ABSCESS - Chief complaint Chief Complaint: Wound - Histroy obtained from History obtained from: Patient - Additional information Additional information: 46-year-old gentleman has been injecting heroin and now has a several day history of a painful abscess to the left deltoid. No fevers or chills. Review of Systems Constitutional: reports: Reviewed and negative Eyes: reports: Reviewed and negative Ears: reports: Reviewed and negative Nose: reports: Reviewed and negative Throat: reports: Reviewed and negative PD PAST MEDICAL HISTORY - Past Medical History Past Medical History: Yes Cardiovascular: Hypertension Respiratory: None Neuro: None Endocrine/Autoimmune: None GI: None : None HEENT: None Psych: Depression, Anxiety, ADD/ADHD Musculoskeletal: Gout Derm: Other - Past Surgical History Past Surgical History: Yes - Present Medications Home Medications: Ambulatory Orders Medication Instructions Recorded Confirmed ALPRAZolam [Alprazolam] 0.5 mg PO TID PRN 01/21/21 01/16/22 Metoprolol Succinate [Toprol Xl] 50 mg PO BID 01/21/21 01/16/22 lisinopriL [Prinivil] 10 mg PO BID 01/21/21 01/16/22 clindamycin HCL [Cleocin HCl] 300 mg PO QID #28 cap 01/16/22 - Allergies Allergies/Adverse Reactions: Allergies Allergy/AdvReac Type Severity Reaction Status Date / Time acetaminophen [From Vicodin] Allergy Itching Verified 01/16/22 14:56 buspirone HCl * [From BuSpar] Allergy Unknown Verified 01/16/22 14:56 codeine Allergy Rash Verified 01/16/22 14:56 hydrocodone [From Vicodin] Allergy Itching Verified 01/16/22 14:56 paroxetine HCl * [From Paxil] Allergy Unknown Verified 01/16/22 14:56 - Social History Does the pt smoke?: Yes Smoking Status: Current every day smoker Does the pt drink ETOH?: No Does the pt have substance abuse?: Yes Substance Use and Type: Marijuana - Immunizations Immunizations are current?: No Immunizations: Other immun not current - POLST Patient has POLST: No PD ED PE NORMAL - Vitals Vital signs reviewed: Yes - General General: Alert and oriented X 3, No acute distress - Extremities Extremities: Other (3 to 4 cm round abscess with overlying cellulitis over the left deltoid. Full range of motion.) - Neuro Neuro: Alert and oriented X 3, Normal speech Results - Vitals Vitals: Vital Signs - 24 hr 01/16/22 14:56 Temperature 36.6 C Heart Rate 96 Respiratory 16 Rate Blood Pressure 128/89 H O2 Saturation 98 Oxygen O2 Source Room air Procedures - Abscess I&D (location) L deltoid Preparation: Betadine, Lidocaine 1%, With epi Incision: Incised with scalpel, Purulent drainage, Loculations broken, Packed (with 1/2 inch packing), Culture obtained Other: Pt tolerated well, Dressing applied, Antibiotic prescribed Departure - Departure Disposition: Home, Self Care Clinical Impression: Abscess Condition: Good Record reviewed to determine appropriate education?: Yes Instructions: ED Abscess IandD Prescriptions: clindamycin HCL [Cleocin HCl] 300 mg PO QID #28 cap Comments: I sent your prescription electronically to [facility] in [place]. We are performing a wound culture, the results should be done in 48-72 hours. If antibiotic change is necessary we will call you. Return if worse in the meantime, especially if you develop increased pain, fevers, cannot keep down the medication. Otherwise follow-up with your physician or return to the ED in 2 days for packing removal
[2022-01-16 15:37] VITALS: BP 140/96
== END 2022-01-16 15:42 | disposition home or self-care (01) ==
LOC: ED 14:52
DX: L02.414 Cutaneous abscess of left upper limb (principal); F17.200 Nicotine dependence, unspecified, uncomplicated
CPT/HCPCS: 10061; 87070; 87205; 99283; A9270

== ENCOUNTER 2022-03-24 15:58 | Outpatient (CLI) | payer MEDICAID | END 2022-03-24 15:59 | disposition home or self-care (01) | LOC: LAB 15:58 | PROVIDERS: ATTEND Internal Medicine | DX: Z01.812 Encounter for preprocedural laboratory examination (principal); K43.9 Ventral hernia without obstruction or gangrene ==

== ENCOUNTER 2022-07-29 09:30 | Outpatient (CLI) | payer MEDICAID ==
--- NOTE | 2022-07-29 12:09 | MRI Report ---
PROCEDURE: Lumbar Spine W/O INDICATIONS: LOW BACK PAIN TECHNIQUE: Noncontrast sagittal T1 spin echo and T2 fast echo, sagittal STIR, axial T1 and T2 fast spin echo thr ough the lumbar spine. In cases with scoliosis, additional coronal T2 fast spin echo may be performe d. COMPARISON: None. FINDINGS: Image quality: Excellent. Alignment and Curvature: There is normal bony alignment. Bone Marrow: Marrow is of normal overall signal. No acute vertebral body compression fractures. Spinal Cord: Conus medullaris terminates at the L1 level. Visualized cord demonstrates normal signa l and size. Paraspinous Soft Tissues: No paravertebral masses. T12-L1: Normal in appearance. L1-L2: Normal in appearance. L2-L3: Mild disc space narrowing and asymmetric left disc bulge without central stenosis. Mild lef t and no right foraminal stenosis L3-L4: Mild disc space narrowing and circumferential disc bulge without central or foraminal stenos is L4-L5: Normal in appearance. L5-S1: Normal in appearance. IMPRESSION: Mild degenerative changes results in mild L2-3 left foraminal stenosis Reviewed by: Everette Franz MD on 07/29/2022 11:07 AM MILLICENT Approved by: Everette Franz MD on 07/29/2022 11:07 AM MILLICENT Station ID: [id number]
== END 2022-07-29 09:31 | disposition home or self-care (01) ==
LOC: DI 09:30
PROVIDERS: ATTEND Internal Medicine
DX: M47.816 Spondylosis without myelopathy or radiculopathy, lumbar region (principal); M48.061 Spinal stenosis, lumbar region without neurogenic claudication

== ENCOUNTER 2022-10-03 10:47 | Emergency (ER) | payer MEDICAID ==
[2022-10-03] MEDS ORDERED: LIDOCAINE 1%-EPI 1:100000 20 ML MDV SUBQ STA (12:54)
[2022-10-03] MEDS ORDERED: PROPOFOL 200 MG/20 ML VIAL IVP STA ×2 (12:54→14:12)
--- NOTE | 2022-10-03 12:55 | ED Physician Documentation ---
PD HPI WOUND RECHECK - Stated complaint Stated Complaint: RT LEG LUMP - Chief complaint Chief Complaint: Wound - Histroy obtained from History obtained from: Patient - Additional information Additional information: 47-year-old gentleman with history of injection drug use and MRSA presents with an abscess to the posterior right thigh that is been going for about a week without fevers or chills. Review of Systems Constitutional: reports: Reviewed and negative Eyes: reports: Reviewed and negative Ears: reports: Reviewed and negative Nose: reports: Reviewed and negative Throat: reports: Reviewed and negative Cardiac: reports: Reviewed and negative PD PAST MEDICAL HISTORY - Past Medical History Cardiovascular: Hypertension Respiratory: Sleep apnea Neuro: None Endocrine/Autoimmune: None GI: GERD, Ulcers, Hepatitis : None HEENT: None Psych: Depression, Anxiety, ADD/ADHD Musculoskeletal: Osteoarthritis, Gout, Chronic back pain Derm: Other - Past Surgical History Past Surgical History: Yes General: Colonoscopy, EGD - Present Medications Home Medications: Ambulatory Orders Medication Instructions Recorded Confirmed ALPRAZolam [Alprazolam] 0.5 mg PO TID PRN 01/21/21 03/19/22 Metoprolol Succinate [Toprol Xl] 50 mg PO BID 01/21/21 03/19/22 lisinopriL [Prinivil] 10 mg PO DAILY 01/21/21 03/19/22 Acetaminophen [Tylenol] 650 mg PO Q6H PRN 03/19/22 oxyCODONE [Roxicodone] 5 mg PO QID 03/19/22 Lidocaine Patch 5% [Lidoderm Patch] 1 patch TOP DAILY PRN #10 patch 04/04/22 tiZANidine [Zanaflex] 4 mg PO Q8H PRN #25 tablet 04/04/22 Sulfamethox/Trimeth 800/160 1 each PO BID #20 tablet 05/08/22 [Bactrim Ds 800/160] Oxycodone HCl/Acetaminophen 1 - 2 each PO Q6H PRN #14 tablet 10/03/22 [Percocet 5-325 mg Tablet] Sulfamethox/Trimeth 800/160 1 each PO BID #14 tablet 10/03/22 [Bactrim Ds 800/160] - Allergies Allergies/Adverse Reactions: Allergies Allergy/AdvReac Type Severity Reaction Status Date / Time buspirone HCl * [From BuSpar] Allergy Unknown Verified 10/03/22 11:42 clindamycin Allergy Unknown Verified 10/03/22 11:42 codeine Allergy Rash Verified 10/03/22 11:42 hydrocodone [From Vicodin] Allergy Rash Verified 10/03/22 11:42 paroxetine HCl * [From Paxil] Allergy Unknown Verified 10/03/22 11:42 - Social History Does the pt smoke?: Yes Smoking Status: Current every day smoker Does the pt drink ETOH?: No Does the pt have substance abuse?: Yes - Immunizations Immunizations are current?: No Immunizations: Other immun not current - POLST Patient has POLST: No PD ED PE NORMAL - Vitals Vital signs reviewed: Yes - General General: Alert and oriented X 3, No acute distress - Extremities Extremities: Other (There is a large subcutaneous abscess in the middle of the right hamstring with overlying cellulitis measuring approximately 12 cm in diameter that is quite tender.) - Neuro Neuro: Alert and oriented X 3, Normal speech Results - Vitals Vitals: Vital Signs - 24 hr 10/03/22 10/03/22 10/03/22 11:37 13:51 13:55 Temperature 36.4 C L Heart Rate 84 87 93 Respiratory 18 16 20 Rate Blood Pressure 183/104 H 152/98 H 165/113 H O2 Saturation 100 95 96 10/03/22 10/03/22 10/03/22 14:03 14:05 14:10 Temperature Heart Rate 93 94 87 Respiratory 12 14 11 L Rate Blood Pressure 140/87 H 125/65 123/82 H O2 Saturation 95 94 99 10/03/22 10/03/22 10/03/22 14:15 14:25 14:55 Temperature Heart Rate 94 92 78 Respiratory 24 16 16 Rate Blood Pressure 137/86 H 124/87 H 153/103 H O2 Saturation 96 100 100 10/03/22 14:59 Temperature Heart Rate 68 Respiratory 17 Rate Blood Pressure O2 Saturation Oxygen O2 Source Room air Procedures - General procedure General procedure: He was difficult for IV access, the nurse had tried and failed. I personally placed a long 22-gauge IV in the right cephalic vein using real-time ultrasound guidance after ChloraPrep which flushed and danny well. - Abscess I&D (location) R leg Preparation: Confirmed with ultrasound, Betadine, Lidocaine 1% Incision: Incised with scalpel, Purulent drainage, Loculations broken, Packed (with 1" packing), Culture obtained Other: Pt tolerated well, Dressing applied, Antibiotic prescribed - Procedural sedation Sedation prep: Informed consent, Time out completed, PE performed, ASA 2 - mild disease Sedation Medications: propofol (divided dosing total 300mg) Mallampati classification: I Patient status during sedation: Unresponsive Sedation recovery: Recovered uneventfully Time in sedation (Minutes): 15 PD MEDICAL DECISION MAKING - ED course ED course: 47-year-old gentleman with parenteral illicit drug use presents with an abscess to the posterior right thigh. It was very tender and it became clear that he would need sedation for an I&D. He was difficult for IV access but using ul trasound guidance we were able to place an IV and after consent he was sedated and the abscess was incised and drained, packed and a culture was sent. Presume MRSA given his history of same and started on Bactrim. Recommended consideration for inpatient detox and given contact information for [facility]. Prior to discharge though he had symptomatic urinary retention probably related to his anesthesia. says he has been having this on and off and is actually scheduled to see a urologist, straight cath was done with 900 mL out and improvement in symptoms. Departure - Departure Disposition: Home, Self Care Clinical Impression: Abscess of right leg Condition: Good Record reviewed to determine appropriate education?: Yes Instructions: ED Abscess IandD Prescriptions: Sulfamethox/Trimeth 800/160 [Bactrim Ds 800/160] 1 each PO BID #14 tablet Oxycodone HCl/Acetaminophen [Percocet 5-325 mg Tablet] 1 - 2 each PO Q6H PRN #14 tablet PRN Reason: pain Comments: I sent your prescription electronically to [facility] in [place]. Follow-up with your primary care physician in 2 days for wound check and packing removal. We are performing a wound culture, the results should be done in 48-72 hours. If antibiotic change is necessary we will call you. Return if worse in the meantime, especially if you develop increased pain, fevers, cannot keep down the medication. Otherwise follow-up with your physician in approximately 2-3 days. Recommend consideration for inpatient detox, there is an inpatient detox facility now in [facility] in [place], [place] Address: [address] [place] [address], [place] [address] Discharge Date/Time: 10/03/22 15:42
[2022-10-03] MEDS ORDERED: PROPOFOL 200 MG/20 ML VIAL IVP ONE (14:02)
[2022-10-03 15:12] VITALS: BP 153/103
== END 2022-10-03 15:42 | disposition home or self-care (01) ==
LOC: ED 10:47
DX: L02.415 Cutaneous abscess of right lower limb (principal); F17.200 Nicotine dependence, unspecified, uncomplicated
CPT/HCPCS: 10061; 51701; 94770; 99152; 99283